=== PATIENT | male | born 1940 | race Caucasian/White ===

== ENCOUNTER → 2016-06-03 | Day surgery (SDC) | payer MEDICARE, BC ==
[~2016-06-03] MED LIST: ASPI81TA2 PO; IV RINGERS,LACTATED 1000ML 1,000 ML IV SCH; OMEP2.5S PO; OMEP20CA9 PO; PROP1VIA IV; PROP20TA PO; PROPOFOL 20 ML IV ONE; RANI150T2 PO
[2016-06-03 08:48] VITALS: BP 116/78
--- NOTE | 2016-06-03 11:35 | HP ---
ADMIT DATE: REFERRING PHYSICIAN: Dr. Afshin Segura. HISTORY OF PRESENT ILLNESS: A 76-year-old male whose past medical history is significant for organic heart disease, status post MO, peptic ulcer disease, gastroesophageal reflux disease, arthritis, status post vasectomy, rotator cuff repair, left wrist surgery, back surgery and was seen with the above symptoms, epigastric and left upper quadrant pain, worse with neoplastic for hours, not worse with exertion, has been on Zantac as well as anti-inflammatory medication, but no change in bowel habits and prior colonoscopy work out was unrevealing. Recent imaging is to be reviewed, but the patient did not show any abnormalities. Continued symptoms, he is here today. PAST MEDICAL HISTORY: Peptic ulcer disease, osteoarthrosis, skin cancers, organic heart disease, status post MO. ALLERGIES: None. MEDICATIONS: Include aspirin, omeprazole, propranolol, and ranitidine. SOCIAL HISTORY: He is retired. He is a former smoker. He does not drink alcohol. FAMILY HISTORY: Noncontributory. PAST SURGICAL HISTORY: As stated. REVIEW OF SYSTEMS: Per records. PHYSICAL EXAMINATION: GENERAL: Well-nourished, well-developed male. VITAL SIGNS: Temperature is 98.4, pulse is 69, respirations 20. LUNGS: Grossly clear. CARDIOVASCULAR: S1, S2 without S3, S4 or appreciable murmur. ABDOMEN: Normoactive bowel sounds with epigastric left upper quadrant tenderness to deep palpation. IMPRESSION: Abdominal pain with reflux, history of peptic ulcer disease and NSAID use, etiology is to be determined. Differential includes gallbladder disease, peptic ulcer disease, malignancy, organic heart disease, Yeung's among others, therefore, I recommended upper endoscopy to further assess this unrevealing, then further consideration of celiac testing and hepatobiliary imaging would be pursued. ROD MACEDO MD DR: DESIREE/misael JOB#: [id number] / [id number] AFSHIN Maldonado MD
--- NOTE | 2016-06-06 13:25 | PATHOLOGY ---
PATHOLOGY REPORT * * * * * * * * FINAL DIAGNOSIS: Esophageal biopsies, distal esophagus: - Segments of hyperplastic squamous esophageal mucosa showing focal intraepithelial neutrophils, chronic inflammatory cells and few eosinophils, consistent with reflux esophagitis. COMMENT: Sections of the distal esophageal biopsy reveal segments of hyperplastic squamous esophageal mucosa showing focal intraepithelial neutrophils, chronic inflammatory cells and few eosinophils. There is also a minute segment of superficial gastric foveolar epithelium. The findings are consistent with reflux esophagitis. There is no evidence of Yeung's change, dysplasia or malignancy. (JPM:csd; d/t: 06/06/2016) REPORT ELECTRONICALLY SIGNED BY: Fermin Delgado M.D. DATE/TIME: 06/06/2016 13:24 * * * * * * * * GROSS PATHOLOGY: Received in formalin labeled "Tim Reyes, distal esophageal biopsy, R/O Yeung's," are four segments of vickers soft tissue measuring 1.0 x 0.9 x 0.1 cm in aggregate dimensions and ranging from 0.5 to 0.7 cm in maximum dimension. The specimen is submitted entirely in cassette A1. (CAA; 06/03/2016) INITIAL CPT CODE(S): A; 55398 Professional services performed by [facility] [address] Technical services performed by [facility] at [address] [place] [address], [facility] [address] [address]. SPECIMEN(S) RECEIVED: A.Distal esophageal biopsy CLINICAL HISTORY: Abdominal pain, R/O Yeung's PATIENT: TIM REYES /AGE: 11 1940 (Age: 76) PATIENT #: [id number] ALT CASE #: SPECIMEN COLLECTION DATE: 06/03/2016 SPECIMEN RECEIVED DATE: 06/03/2016 [facility] - [address] [place] [address] - PHONE: [phone] * * * END OF REPORT * * *
== END | disposition home or self-care (01) ==
LOC: ENDOS 06:19
PROVIDERS: ATTEND Internal Medicine Gastroenterology
DX: K21.0 Gastro-esophageal reflux disease with esophagitis (principal); K29.50 Unspecified chronic gastritis without bleeding; M19.90 Unspecified osteoarthritis, unspecified site; Z87.39 Personal history of other diseases of the musculoskeletal system and connective tissue
CPT/HCPCS: 43239; J2704

== ENCOUNTER → 2016-06-13 | Outpatient (CLI) | payer MEDICARE, BC ==
[2016-06-03 08:48] VITALS: BP 116/78
[~2016-06-13] VITALS: Ht 185.4 cm; Wt 83.9 kg
[~2016-06-13] MED LIST changes: -IV RINGERS,LACTATED 1000ML 1,000 ML IV SCH; -PROPOFOL 20 ML IV ONE; +SINCALIDE 1.68 MCG in IV NORMAL SALINE 50ML 30 ML IV ONE
--- NOTE | 2016-06-13 09:08 | RAD ---
EXAM: Abdomen sonogram limited. HISTORY: Right upper quadrant pain. TECHNIQUE: Sonographic imaging of the abdomen was performed. COMPARISON: None. FINDINGS: There is hepatic steatosis and hepatomegaly. No focal hepatic lesion is seen. The gallbladder is unremarkable. The right kidney is unremarkable. The inferior vena cava is patent. The pancreas is obscured. The common bile duct is normal in caliber, measuring 3 mm. IMPRESSION: 1. Hepatomegaly and hepatic steatosis. 2. Obscured pancreas.
--- NOTE | 2016-06-13 11:24 | RAD ---
EXAM: Nuclear hepatobiliary scan. HISTORY: Reflux. TECHNIQUE: Following intravenous administration of 5.0 mCi Tc 99m Choletec, anterior images of the abdomen were obtained at five minute intervals through one hour. Subsequently, 1.7 mcg CCK was administered and additional images to assess gallbladder ejection fraction were obtained. FINDINGS: There is prompt radiotracer uptake by the liver. No focal defect is seen. There is normal excretion into the biliary tree. The gallbladder is visualized within sixty minutes and there is emptying of tracer into the duodenum. The gallbladder ejection fraction is decreased to 20%. IMPRESSION: Decreased gallbladder ejection fraction of 20%.
== END | disposition home or self-care (01) ==
LOC: US 07:48
PROVIDERS: ATTEND Internal Medicine Gastroenterology
DX: K21.9 Gastro-esophageal reflux disease without esophagitis (principal); R10.11 Right upper quadrant pain; K76.0 Fatty (change of) liver, not elsewhere classified; R16.0 Hepatomegaly, not elsewhere classified
CPT/HCPCS: 76705; 78226; 96374; 96375; A9537; J2805

== ENCOUNTER 2016-09-21 06:38 | Emergency (ER) | payer MEDICARE, BC ==
[~2016-09-21] VITALS: Ht 185.4 cm; Wt 81.6 kg
[~2016-09-21 06:38] MED LIST changes: +ASPI-630 PO; -ASPI81TA2 PO; -SINCALIDE 1.68 MCG in IV NORMAL SALINE 50ML 30 ML IV ONE
--- NOTE | 2016-09-21 07:40 | PHYS DOC ---
Past Medical History Past Medical History: No Pertinent History Past Surgical History: No Surgical History Alcohol Use: None Drug Use: None Adult General Chief Complaint Chief Complaint: ABDOMINAL PAIN HPI HPI 76-year-old male presenting to the emergency department today with epigastric abdominal pain. He reports it radiates to both sides but not to his back. It is a sharp intermittent pain that comes and goes. It is not associated with nausea or vomiting. He denies dark stools. Currently the pain is moderate. He was started on omeprazole by his primary care physician without relief. Review of systems is negative for chest pain shortness of breath fevers chills nausea vomiting diarrhea or constipation. All other review of systems is negative unless otherwise noted in history of present illness. All other review of systems is negative unless otherwise noted in history of present illness. ED course: 76-year-old male presenting to the emergency department with epigastric abdominal pain. Physical exam shows a soft nondistended nontender abdomen. Negative McBurney's point. Negative Pérez sign. IV established. Saline and hydromorphone and ondansetron given. CT abdomen pelvis obtained along with blood work. EKG reviewed by myself shows sinus rhythm with a regular rate. [place] is mildly leftward. Intervals show normal intervals. ST segments are congruent. On reexamination the patient was feeling much better. Abdomen continues to be soft and nontender on reexamination of the abdomen. Blood work reviewed. CBC unremarkable. Chemistry panel shows mildly elevated total bilirubin with a normal direct bilirubin. Otherwise troponin within normal limits. Patient's pain is been present for greater than 24 hours thus 1 troponin sufficient at this time. Otherwise lactate within normal limits. CT of the abdomen pelvis shows no acute pathology. The patient was then discharged home in stable condition to follow up with their primary care physician over the next 2-3 days. They were to return if their symptoms worsened or if they were concerned for any reason. [id number] discharge instructions and return precautions were given. Patient's questions were answered to their satisfaction. Patient is comfortable plan. Review of Systems Review of Systems SEE ABOVE. Current Medications Current Medications Current Medications Medications (Trade) Dose Ordered Sig/Carolyn Start Time Stop Time Status Last Admin Dose Admin Hydromorphone HCl (Dilaudid) 0.5 mg PRN Q1HR PRN 09/21/16 07:45 09/21/16 08:11 0.5 MG Ondansetron HCl (Zofran) 4 mg 1X ONCE 09/21/16 07:45 09/21/16 07:46 DC 09/21/16 08:08 4 MG Sodium Chloride 500 ml @ 500 mls/hr 1X ONCE 09/21/16 07:45 09/21/16 08:44 DC 09/21/16 08:07 500 MLS/HR Allergies Allergies Allergies Coded Allergies Type Severity Reaction Last Updated Verified No Known Drug Allergies 06/03/16 No Physical Exam Physical Exam SEE ABOVE Constitutional: Well developed, well nourished, no acute distress, non-toxic appearance. [] HENT: Normocephalic, atraumatic, bilateral external ears normal, oropharynx moist, no oral exudates, nose normal. [] Eyes: PERRLA, EOMI, conjunctiva normal, no discharge. [] Neck: Normal range of motion, no tenderness, supple, no stridor. [] Cardiovascular:Heart rate regular rhythm, no murmur [] Lungs & Thorax: Bilateral breath sounds clear to auscultation [] Abdomen: Bowel sounds normal, soft, no tenderness, no masses, no pulsatile masses. [] Skin: Warm, dry, no erythema, no rash. [] Back: No tenderness, no CVA tenderness. [] Extremities: No tenderness, no cyanosis, no clubbing, ROM intact, no edema. [] Neurologic: Alert and oriented X 3, normal motor function, normal sensory function, no focal deficits noted. [] Psychologic: Affect normal, judgement normal, mood normal. [] Current Patient Data Vital Signs Vital Signs Date Time Temp Pulse Resp B/P (MAP) Pulse Ox O2 Delivery O2 Flow Rate FiO2 09/21/16 08:11 20 98 Room Air 09/21/16 07:00 97.9 69 122/74 (90) 97.9 Lab Values Laboratory Tests Test 09/21/16 07:35 09/21/16 09:15 White Blood Count 10.5 x10^3/uL (4.0-11.0) Red Blood Count 5.15 x10^6/uL (4.30-5.70) Hemoglobin 16.2 g/dL (13.0-17.5) Hematocrit 48.2 % (39.0-53.0) Mean Corpuscular Volume 94 fL (79-100) Mean Corpuscular Hemoglobin 32 pg (25-35) Mean Corpuscular Hemoglobin Concent 34 g/dL (31-37) Red Cell Distribution Width 13.7 % (11.5-14.5) Platelet Count 211 x10^3/uL (140-400) Neutrophils (%) (Auto) 88 % (31-73) H Lymphocytes (%) (Auto) 4 % (24-48) L Monocytes (%) (Auto) 6 % (0-9) Eosinophils (%) (Auto) 2 % (0-3) Basophils (%) (Auto) 1 % (0-3) Neutrophils # (Auto) 9.2 x10^3uL (1.8-7.7) H Lymphocytes # (Auto) 0.4 x10^3/uL (1.0-4.8) L Monocytes # (Auto) 0.6 x10^3/uL (0.0-1.1) Eosinophils # (Auto) 0.2 x10^3/uL (0.0-0.7) Basophils # (Auto) 0.1 x10^3/uL (0.0-0.2) Segmented Neutrophils % 77 % (35-66) H Band Neutrophils % 4 % (0-9) Lymphocytes % 9 % (24-48) L Monocytes % 5 % (0-10) Eosinophils % 4 % (0-5) Basophils % 1 % (0-3) Platelet Estimate Adequate (ADEQUATE) Sodium Level 141 mmol/L (136-145) Potassium Level 4.1 mmol/L (3.5-5.1) Chloride Level 104 mmol/L (98-107) Carbon Dioxide Level 32 mmol/L (21-32) Anion Gap 5 (6-14) L Blood Urea Nitrogen 9 mg/dL (8-26) Creatinine 1.0 mg/dL (0.7-1.3) Estimated GFR (Cockcroft-Gault) 72.6 Glucose Level 101 mg/dL (70-99) H Lactic Acid Level 1.5 mmol/L (0.4-2.0) Calcium Level 8.0 mg/dL (8.5-10.1) L Total Bilirubin 1.3 mg/dL (0.2-1.0) H Direct Bilirubin 0.2 mg/dL (0.0-0.2) Aspartate Amino Transferase (AST) 14 U/L (15-37) L Alanine Aminotransferase (ALT) 15 U/L (16-63) L Alkaline Phosphatase 90 U/L (46-116) Troponin I Quantitative 0.030 ng/mL (0.000-0.055) [id number]-[id number]-Type Natriuretic Peptide 156 pg/mL (0-449) Total Protein 7.0 g/dL (6.4-8.2) Albumin 3.7 g/dL (3.4-5.0) Lipase 160 U/L (73-393) Urine Collection Type Void Urine Color Marina Urine Clarity Clear Urine pH 5.5 Urine Specific Panther 1.020 Urine Protein Negative mg/dL (NEG-TRACE) Urine Glucose (UA) Negative mg/dL (NEG) Urine Ketones (Stick) Negative mg/dL (NEG) Urine Blood Negative (NEG) Urine Nitrite Negative (NEG) Urine Bilirubin Negative (NEG) Urine Urobilinogen Dipstick 0.2 mg/dL (0.2 mg/dL) Urine Leukocyte Esterase Trace (NEG) Urine RBC Occ /HPF (0-2) Urine WBC Occ /HPF (0-4) Urine Squamous Epithelial Cells Occ /LPF Urine Bacteria 0 /HPF (0-FEW) Urine Mucus Marked /LPF Laboratory Tests 09/21/16 07:35 Laboratory Tests 09/21/16 07:35 EKG EKG [] Radiology/Procedures Radiology/Procedures [] Course & Med Decision Making Course & Med Decision Making Pertinent Labs and Imaging studies reviewed. (See chart for details) [] Dragon Disclaimer Dragon Disclaimer This electronic medical record was generated, in whole or in part, using a voice recognition dictation system. Departure Departure Impression: Primary Impression: Abdominal pain Disposition: HOME, SELF-CARE Condition: STABLE Referrals: AFSHIN VELASQUEZ MD (PCP) Patient Instructions: Abdominal Pain Additional Instructions: Thank you for allowing us to participate in your care today. Followup with your primary care physician in 3 days if your symptoms do not improve. Call your Primary Doctor tomorrow and inform them of your visit today. If you do not have a primary care provider you can ask for a list of our primary care providers. Return to the emergency department you have any new or concerning findings. This should be evaluated by the primary care physician and any necessary consulting services for continued management within a few days after discharge. Return to emergency room if you have any new or concerning symptoms including but not limited to fever, chills, nausea, vomiting, intractable pain, any new rashes, chest pain, shortness of air, uncontrolled bleeding, difficulty breathing, and/or vision loss. You may have been prescribed medication that can change in your level of thinking and ability to operate machinery. These medications include hydrocodone and Ativan. Also, Benadryl has been known to do this as well. Be sure to check with your pharmacist and ask if the medications you've prescribed can affect your level of consciousness. I recommend not operating heavy machinery or driving while on medication such as these. Scripts Ondansetron (ZOFRAN ODT) 4 Mg Tab.rapdis 1 TAB SL PRN Q8HRS Y for NAUSEA, #6 TAB Prov: WESLY ROBERTS MD 09/21/16 Hydrocodone Bit/Acetaminophen (HYDROCODONE-APAP 5-325 ) 1 Each Tablet 1 TAB PO PRN Q6HRS Y for PAIN, #15 TAB 0 Refills Be careful as this medication may cause you to be drowsy or tired. Do not drive on this medication. Prov: WESLY ROBERTS MD 09/21/16 Problem Qualifiers Primary Impression: Abdominal pain Abdominal location: epigastric Qualified Codes: R10.13 - Epigastric pain WESLY ROBERTS MD Sep 21, 2016 07:40
[2016-09-21] MEDS ORDERED: HYDROmorphone 2 MG/ML VIAL IV PRN (07:45)
[2016-09-21] MEDS ORDERED: IV NORMAL SALINE 500ML BAG 500 ML IV ONE (07:45)
[2016-09-21] MEDS ORDERED: ONDANSETRON PF 4 MG/2 ML VIAL. IV ONE (07:45)
[2016-09-21 07:51] LABS: BASO # 0.1 x10^3/uL (0.0-0.2); BASO % 1 % (0-3); EOS % 2 % (0-3); HEMATOCRIT 48.2 % (39.0-53.0); HEMOGLOBIN 16.2 g/dL (13.0-17.5); LYMPH # 0.4 x10^3/uL (1.0-4.8); LYMPH % 4 % (24-48); MEAN CORPUSCULAR HEMOGLOBIN 32 pg (25-35); MEAN CORPUSCULAR HGB CONC 34 g/dL (31-37); MEAN CORPUSCULAR VOLUME 94 fL (79-100); MONO % 6 % (0-9); NEUT % 88 % (31-73); PLATELET COUNT 211 x10^3/uL (140-400); RED BLOOD COUNT 5.15 x10^6/uL (4.30-5.70); RED CELL DISTRIBUTION WIDTH 13.7 % (11.5-14.5); WHITE BLOOD COUNT 10.5 x10^3/uL (4.0-11.0)
[2016-09-21 07:56] LABS: GFR 72.6; POTASSIUM 4.1 mmol/L (3.5-5.1)
[2016-09-21 08:00] LABS: ALBUMIN 3.7 g/dL (3.4-5.0); DIRECT BILIRUBIN 0.2 mg/dL (0.0-0.2); TOTAL BILIRUBIN 1.3 mg/dL (0.2-1.0)
--- NOTE | 2016-09-21 08:03 | RAD ---
Indication mid abdominal pain. Duration one day. Axial images through the abdomen and pelvis were obtained. No IV or gastrointestinal contrast was administered. No prior CT imaging of the abdomen or pelvis is available. The lung bases are clear. The liver and spleen appear unremarkable. The gallbladder appears grossly normal. No pancreatic abnormality is seen. No adrenal anomalies are apparent. There is a 3 mm left renal calculus. There is no hydronephrosis hydroureter or calcification seen along the course of either ureter. An acute finding is not seen. There does not appear to be in an inordinate amount of stool in the large bowel. No acute finding is seen in the pelvis. The prostate is slightly enlarged. Kyphoplasty changes are noted at L4 and T12. IMPRESSION: No acute finding seen in the abdomen or pelvis PQRS Compliance Statement: One or more of the following individualized dose reduction techniques were utilized for this examination: 1. Automated exposure control 2. Adjustment of the mA and/or kV according to patient size 3. Use of iterative reconstruction technique
--- NOTE | 2016-09-21 08:17 | ACF ---
Admission Forms Criteria I am unable to edit this form. This patient was placed as observation status. This is the only avenue in our electronic medical record for me to document this. All of the above information is not my professional medical opinion. Admission Criteria Met?: Pending SCOTT MARTINEZ Sep 21, 2016 08:17 WESLY ROBERTS MD Sep 27, 2016 03:51
--- NOTE | 2016-09-21 08:46 | EKG ---
[facility] [address] [place] [address] Test Date: 2016-09-21 Test Time: 07:24:43 Pat Name: LEONIE REYES Department: Room: Gender: M Product Responsibility Liaison: : 1940 Requested By: WESLY ROBERTS Order Number: [id number] Reading MD: Measurements Intervals [place] Rate: 59 P: -129 NV: 190 QRS: -43 QRSD: 92 T: 23 QT: 364 QTc: 364 Interpretive Statements SINUS RHYTHM ABNORMAL LEFT AXIS DEVIATION R-S TRANSITION ZONE IN V LEADS DISPLACED TO THE RIGHT QRS(T) CONTOUR ABNORMALITY CANNOT RULE OUT ANTEROSEPTAL MYOCARDIAL DAMAGE CONSISTENT WITH INFERIOR INFARCT PROBABLY OLD RI6.01 Unconfirmed report No previous ECG available for comparison
[2016-09-21 09:31] LABS: % BASOS 1 % (0-3); % EOS 4 % (0-5); PLT ESTIMATE ADEQUATE (ADEQUATE)
[2016-09-21 09:57] LABS: BILIRUBIN,URINE NEGATIVE (NEG); GLUCOSE,URINE NEGATIVE (NEG); NITRITE,URINE NEGATIVE (NEG); PH,URINE 5.5; PROTEIN,URINE NEGATIVE (NEG-TRACE); UROBILINOGEN,URINE 0.2 mg/dL (0.2 mg/dL)
[2016-09-21 10:16] LABS: BACTERIA,URINE 0 /HPF (0-FEW); RBC,URINE OCC /HPF (0-2); SQUAMOUS EPITHELIAL CELL,UR OCC /LPF; WBC,URINE OCC /HPF (0-4)
[2016-09-21] MEDS ORDERED: ONDA4TAB10 SL (11:03)
[2016-09-21] MEDS ORDERED: HYDR-2758 PO (11:03)
[2016-09-21 11:11] VITALS: BP 121/71
== END 2016-09-21 12:00 | disposition home or self-care (01) ==
LOC: ER 06:38
DX: R10.13 Epigastric pain (principal)
CPT/HCPCS: 36415; 74176; 80048; 80076; 81001; 83605; 83690; 83880; 84484; 85007; 85027; 87086; 93005; 96361; 96374; 96375; 99285; J1170; J2405; J7040

== ENCOUNTER → 2016-10-10 | Day surgery (SDC) | payer MEDICARE, BC ==
[~2016-10-10] VITALS: Ht 182.9 cm; Wt 84.0 kg
[~2016-10-10] MED LIST changes: +ACET500T33 PO; +BUPIVACAINE-EPI 0.5%-1:200000 50 ML VIAL. ONE; +DESFLURANE 61 TO 120 MINUTES IH ONE; +DEXAMETHASONE SOD PHOS 20 MG/5 ML VIAL. ONE; +GLYCOPYRROLATE 1 MG/5 ML VIAL. ONE; +HYDR-2758 PO; +HYDR-2762 PO; +HYDROcodone/APAP 7.5/325MG 1 TAB TABLET PO PRN; +HYDROmorphone 2 MG/ML VIAL IV PRN; +IOHEXOL 300 MG/ML 50 ML VIAL. ONE; +IV RINGERS,LACTATED 1000ML 1,000 ML IV SCH; +LIDOCAINE 1% 1 ML SYRINGE. ID PRN; +MORPHINE SULFATE 2 MG/ML DISP.SYRIN. IV PRN; +NEOSTIGMINE METHYLSULFATE 5 MG/5 ML SYRINGE. ONE; +ONDA4TAB10 SL; +ONDANSETRON PF 4 MG/2 ML VIAL. IV PRN; +ONDANSETRON PF 4 MG/2 ML VIAL. ONE; +PROCHLORPERAZINE 10 MG/2 ML VIAL. IV PRN; +PROP60CA8 PO; +PROPOFOL 20 ML IV ONE; +ROCURONIUM 50 MG/5 ML VIAL. ONE; +SENN1TAB70 PO; +SUCCINYLCHOLINE 200 MG/10 ML VIAL. ONE; +SURGICEL HEMOSTAT 4X8 EACH. ONE; +fentaNYL PF VIAL 100 MCG/2 ML VIAL IV PRN; +fentaNYL PF VIAL 100 MCG/2 ML VIAL ONE; +fentaNYL PF VIAL 250 MCG/5 ML VIAL ONE
--- NOTE | 2016-10-10 09:29 | PDOC1 ---
History and Physical Date of Admission Date of Admission DATE: 10/10/16 TIME: 07:45 Identification/Chief Complaint Chief Complaint RUQ pain Problems: Source Source: Chart review, Patient History of Present Illness History of Present Illness Mr Iverson is a 76 yo gentleman with epigastric and RUQ pain post prandially. His GB EF is low and he is brought for l/s abran in hope of improving his Sx Past Medical History Cardiovascular: No pertinent hx Pulmonary: No pertinent hx Hepatobiliary: Other (biliary dyskinesia) Renal/: No pertinent hx Past Surgical History Past Surgical History: Hernia Repair, Other (back,wrist, rotator cuff) Family History Family History: No Significant Social History Smoke: No ALCOHOL: none Drugs: None Current Medications Current Medications Current Medications Ondansetron HCl (Zofran) 4 mg PRN Q6HRS PRN IV NAUSEA/VOMITING; Start 10/10/16 at 07:00; Stop 10/11/16 at 06:59 Fentanyl Citrate (Fentanyl 2ml Vial) 25 mcg PRN Q5MIN PRN IV MILD PAIN; Start 10/10/16 at 07:00; Stop 10/11/16 at 06:59 Fentanyl Citrate (Fentanyl 2ml Vial) 50 mcg PRN Q5MIN PRN IV MODERATE PAIN; Start 10/10/16 at 07:00; Stop 10/11/16 at 06:59 Morphine Sulfate 1 mg PRN Q10MIN PRN IV SEVERE PAIN; Start 10/10/16 at 07:00; Stop 10/11/16 at 06:59 Ringer's Solution 1,000 ml @ 0 mls/hr Q0M IV ; Start 10/10/16 at 07:00; Stop at 18:59 Lidocaine HCl 2 ml PRN 1X PRN ID PRIOR TO IV START; Start 10/10/16 at 07:00; Stop 10/11/16 at 06:59 Hydromorphone HCl (Dilaudid) 0.5 mg PRN Q10MIN PRN IV SEV PAIN, Second choice; Start 10/10/16 at 07:00; Stop 10/11/16 at 06:59 Prochlorperazine Edisylate (Compazine) 5 mg PACU PRN PRN IV NAUSEA, MRX1; Start 10/10/16 at 07:00; Stop 10/11/16 at 06:59 Cefazolin Sodium/ Dextrose 50 ml @ 100 mls/hr 1X ONCE IV Last administered on 10/10/16 08:07; Start 10/10/16 at 06:00; Stop 10/10/16 at 06:29; Status DC Cellulose 1 each STK-MED ONCE .ROUTE ; Start 10/10/16 at 07:09; Stop 10/10/16 at 07:10; Status DC Iohexol (Omnipaque 300 Mg/ml) 50 ml STK-MED ONCE .ROUTE Last administered on 08:25; Start 10/10/16 at 07:09; Stop 10/10/16 at 07:10; Status DC Bupivacaine HCl/ Epinephrine Bitart (Marcaine-Epi 0.5%-1:[id number]) 50 ml STK-MED ONCE .ROUTE Last administered on 10/10/16 08:25; Start 10/10/16 at 07:09; Stop 10/10/16 at 07:10; Status DC Ringer's Solution 1,000 ml @ 75 mls/hr [id number] IV Last administered on 07:26; Start 10/10/16 at 07:30 Fentanyl Citrate (Fentanyl 5ml Vial) 250 mcg STK-MED ONCE .ROUTE ; Start at 07:42; Stop 10/10/16 at 07:43; Status DC Rocuronium [place] (Zemuron) 50 mg STK-MED ONCE .ROUTE ; Start 10/10/16 at 07:42 ; Stop 10/10/16 at 07:43; Status DC Succinylcholine Chloride (Anectine) 200 mg STK-MED ONCE .ROUTE ; Start 10/10/16 at 07:43; Stop 10/10/16 at 07:44; Status DC Ephedrine Sulfate (Akovaz) 50 mg STK-MED ONCE .ROUTE ; Start 10/10/16 at 08:05; Stop 10/10/16 at 08:06; Status DC Desflurane (Suprane) 60 ml STK-MED ONCE IH ; Start 10/10/16 at 08:32; Stop 10/10 at 08:33; Status DC Propofol 20 ml @ As Directed STK-MED ONCE IV ; Start 10/10/16 at 08:32; Stop at 08:33; Status DC Dexamethasone Sodium Phosphate (Decadron) 20 mg STK-MED ONCE .ROUTE ; Start at 08:32; Stop 10/10/16 at 08:33; Status DC Ondansetron HCl (Zofran) 4 mg STK-MED ONCE .ROUTE ; Start 10/10/16 at 08:32; Stop 10/10/16 at 08:33; Status DC Glycopyrrolate (Robinul) 1 mg STK-MED ONCE .ROUTE ; Start 10/10/16 at 08:33; Stop 10/10/16 at 08:34; Status DC Neostigmine Methylsulfate 5 mg STK-MED ONCE .ROUTE ; Start 10/10/16 at 08:33; Stop 10/10/16 at 08:34; Status DC Active Scripts Active Reported Tylenol Extra Strength (Acetaminophen) 500 Mg Tablet 1,000 Mg PO QHS Hydrocodone-Apap 7.5-325 (Hydrocodone Bit/Acetaminophen) 1 Each Tablet 1 Tab PO PRN PRN Inderal La (Propranolol Hcl) 60 Mg Cap.sa.24h 1 Cap PO DAILY Ranitidine Hcl 150 Mg Tablet 150 Mg PO BID Omeprazole 20 Mg Capsule.dr 20 Mg PO DAILY Allergies Allergies: Coded Allergies: No Known Drug Allergies (Unverified , 06/03/16) ROS Review of System negative with the exception of present complaints Physical Exam General: Alert, Oriented X3, Cooperative, No acute distress HEENT: Atraumatic Lungs: Clear to auscultation Heart: RRR Abdomen: Soft, Other (minimally TTP in the RUQ) Vitals Vitals Vital Signs Date Time Temp Pulse Resp B/P (MAP) Pulse Ox O2 Delivery O2 Flow Rate FiO2 10/10/16 07:21 97.6 62 97 97.6 10/10/16 07:18 18 124/76 Room Air VTE Prophylaxis Ordered VTE Prophylaxis Devices: Yes VTE Pharmacological Prophylaxi: No Assessment/Plan Assessment/Plan biliary dyskinesia Discussed risks of laprascopic cholecystectomy including but not limited to bleeding, infection, injury to bowel, liver or bile ducts with resultant bile leak or bile blockage. Also the possible need for an "open" procedure or diarrhea post op. Also explained that he could continue to have symptoms despite having his GB out. He will proceed. PERLA CHAHAL MD Oct 10, 2016 09:29
--- NOTE | 2016-10-10 09:31 | PDOC ---
BRIEF OPERATIVE NOTE Date: Oct 10, 2016 Pre-Op Diagnosis biliary dyskinesia Post-Op Diagnosis same Procedure Performed l/s abran with grams Surgeon Joo Anesthesia Type: General Blood Loss 75cc IV Fluid 900cc Specimens Obtained GB Findings supple GB with omental adhesions, normal grams Complications none OPerative Note Wk # [id number] PERLA CHAHAL MD Oct 10, 2016 09:31
--- NOTE | 2016-10-10 09:37 | DISCH ---
DISCHARGE INSTRUCTIONS Condition on Discharge Condition on Discharge: Stable Activity After Discharge Activity Instructions for Disc: Activity as tolerated, Avoid exertion Lifting Instructions after Dis: No heavy lifting Driving Instructions after Dis: Do not drive (4-5 days) Diet after Discharge Diet after Discharge: Regular Wound Incision Care Wound/Incision Care: Ice to area for comfort Other wound/incision instructi: july shower Monday Follow-Up Follow Up With: Joo next week PERLA CHAHAL MD Oct 10, 2016 09:37
--- NOTE | 2016-10-10 10:07 | OP ---
DATE OF SURGERY: 10/10/2016 PREOPERATIVE DIAGNOSIS: Biliary dyskinesia. POSTOPERATIVE DIAGNOSIS: Biliary dyskinesia. PROCEDURE: Laparoscopic cholecystectomy with cholangiogram. SURGEON: Perla Chahal MD ANESTHESIA: General endotracheal. IV FLUIDS: 900 mL. ESTIMATED BLOOD LOSS: 75 mL. INDICATIONS: The patient is a 76-year-old gentleman with epigastric and right upper quadrant pain. He has a low ejection fraction on his PIPIDA scan. He is brought for cholecystectomy. OPERATIVE FINDINGS: The liver was smooth, sharp, and mildly fibrotic. The gallbladder was supple with omental adhesions along the inferior surface. Visual inspection of remainder of the abdomen failed to reveal obvious abnormalities. DESCRIPTION OF PROCEDURE: The patient brought to the operating suite, given a general endotracheal anesthetic and the abdomen prepped and draped in usual sterile fashion. An infraumbilical incision was infiltrated with local anesthetic, sharply incised and a 5 mm Visiport used to gain access into the abdominal cavity. Pneumoperitoneum was established. Camera inserted and inspection carried out with results as noted above. With the table in reverse Trendelenburg rolled to the left, the epigastric, midclavicular, and lateral ports were placed under direct vision. The gallbladder was retracted superolaterally and the omental adhesions were carefully taken down with blunt and cautery dissection, avoiding injury to the adjacent bowel. The cystic duct and cystic artery were exposed. The cystic duct was clipped on the gallbladder side. Cholangiograms were made. These were normal. In light of this, the catheter was removed and the cystic duct was clipped and divided, taking care to avoid injury or compromise the common duct. An anterior and posterior branch of the cystic artery were isolated, clipped and divided and gallbladder freed from the bed with cautery dissection and placed in an EndoCatch bag. Good hemostasis obtained in the fossa with cautery. Table returned to level. Gallbladder delivered through the epigastric incision. Epigastric incision closed with interrupted 0 Vicryl suture. Intra-abdominal pressure decreased to 6 cm of water. No bleeding from the epigastric closure or from the midclavicular or lateral port sites after their removal. Abdomen decompressed, camera slowly removed, no bleeding seen. Skin incisions closed with subcuticular 4-0 Monocryl. Steri-Strips and sterile dressings applied. The patient was awakened from his anesthetic and taken to the recovery room in satisfactory condition. PERLA CHAHAL MD DR: Giovanny JOB#: [id number] / [id number]
--- NOTE | 2016-10-10 10:44 | RAD ---
Intraoperative cholangiogram, 10/10/2016: History: Cholecystectomy 3 spot films from surgery are presented for review. Contrast has been injected into the cystic duct remnant. 0.23 minutes of fluoroscopy time was utilized. There is good flow of contrast into the duodenum at the ampulla. No filling defect is seen in the common duct to suggest a retained stone. There is extravasation of contrast in the gallbladder fossa region. This is likely on a technical basis related to the catheter insertion site in the cystic duct. A biliary leak cannot be entirely excluded. The intrahepatic ducts are incompletely opacified.
[2016-10-10 13:45] VITALS: BP 134/72
--- NOTE | 2016-10-12 11:36 | PATHOLOGY ---
PATHOLOGY REPORT * * * * * * * * FINAL DIAGNOSIS: Gallbladder, laparoscopic cholecystectomy: - Chronic cholecystitis. COMMENT: There are no calculi identified within the gallbladder lumen or specimen container. Sections of the gallbladder show chronic inflammation. There is no evidence of malignancy. (JPM:mgr; 10/11/2016) REPORT ELECTRONICALLY SIGNED BY: Fermin Delgado M.D. DATE/TIME: 10/11/2016 13:52 * * * * * * * * GROSS PATHOLOGY: Received in formalin labeled "Tim Reyes, gallbladder and contents," is a 6.2 x 2.4 x 1.0 cm, partially opened gallbladder with yellow brewer serosal surfaces. Opening the gallbladder reveals harris, yellow red, velvety mucosa and an average wall thickness of 0.3 cm. Calculi are not present and no masses are noted grossly. Inhalation Therapy Aide sections from the body and fundus are submitted along with the proximal margin in cassette A1. (JPM; 10/10/16) INITIAL CPT CODE(S): A; 91297 Professional services performed by [facility] [place] [address] Technical services performed by [facility] at [address] [place] [address]. SPECIMEN(S) RECEIVED: A.Gallbladder and contents CLINICAL HISTORY: Biliary dyskinesia PATIENT: TIM REYES /AGE: 11 1940 (Age: 76) PATIENT #: [id number] ALT CASE #: SPECIMEN COLLECTION DATE: 10/10/2016 SPECIMEN RECEIVED DATE: 10/10/2016 [facility] - [address] [place] [address] - PHONE: [phone] * * * END OF REPORT * * *
== END | disposition home or self-care (01) ==
LOC: SURG 06:30
PROVIDERS: ATTEND Surgery
DX: K82.8 Other specified diseases of gallbladder (principal); K21.9 Gastro-esophageal reflux disease without esophagitis; M19.90 Unspecified osteoarthritis, unspecified site; Z87.39 Personal history of other diseases of the musculoskeletal system and connective tissue
CPT/HCPCS: 47563; 74300; J0330; J0690; J1100; J2405; J2704; J2710; J3010; J3490; Q9967; 88304; J7030

== ENCOUNTER → 2017-05-05 | Outpatient (CLI) | payer MEDICARE, BC | END | disposition home or self-care (01) | LOC: KCIC CT 12:35 | DX: M48.54XA Collapsed vertebra, not elsewhere classified, thoracic region, initial encounter for fracture (principal); R09.89 Other specified symptoms and signs involving the circulatory and respiratory systems; N20.0 Calculus of kidney | CPT/HCPCS: 70486; 71250 ==

== ENCOUNTER → 2017-09-08 | Outpatient (CLI) | payer MEDICARE, BC | END | disposition home or self-care (01) | LOC: KCIC CT 13:49 | DX: H91.8X3 Other specified hearing loss, bilateral (principal); J34.89 Other specified disorders of nose and nasal sinuses | CPT/HCPCS: 70480 ==

== ENCOUNTER 2019-09-15 05:44 | Emergency (ER) | payer MEDICARE, BC ==
[~2019-09-15] VITALS: Ht 185.4 cm; Wt 68.0 kg
[~2019-09-15 05:44] MED LIST changes: -BUPIVACAINE-EPI 0.5%-1:200000 50 ML VIAL. ONE; -DESFLURANE 61 TO 120 MINUTES IH ONE; -DEXAMETHASONE SOD PHOS 20 MG/5 ML VIAL. ONE; -GLYCOPYRROLATE 1 MG/5 ML VIAL. ONE; -HYDR-2758 PO; +HYDR-2761 PO; -HYDR-2762 PO; +HYDR-2765 PO; -HYDROcodone/APAP 7.5/325MG 1 TAB TABLET PO PRN; -HYDROmorphone 2 MG/ML VIAL IV PRN; -IOHEXOL 300 MG/ML 50 ML VIAL. ONE; -IV RINGERS,LACTATED 1000ML 1,000 ML IV SCH; -LIDOCAINE 1% 1 ML SYRINGE. ID PRN; -MORPHINE SULFATE 2 MG/ML DISP.SYRIN. IV PRN; -NEOSTIGMINE METHYLSULFATE 5 MG/5 ML SYRINGE. ONE; -OMEP2.5S PO; +OMEP2.5S2 PO; +OMEP20CA16 PO; -OMEP20CA9 PO; -ONDANSETRON PF 4 MG/2 ML VIAL. IV PRN; -ONDANSETRON PF 4 MG/2 ML VIAL. ONE; -PROCHLORPERAZINE 10 MG/2 ML VIAL. IV PRN; +PROP60CA36 PO; -PROP60CA8 PO; -PROPOFOL 20 ML IV ONE; -ROCURONIUM 50 MG/5 ML VIAL. ONE; -SUCCINYLCHOLINE 200 MG/10 ML VIAL. ONE; -SURGICEL HEMOSTAT 4X8 EACH. ONE; -fentaNYL PF VIAL 100 MCG/2 ML VIAL IV PRN; -fentaNYL PF VIAL 100 MCG/2 ML VIAL ONE; -fentaNYL PF VIAL 250 MCG/5 ML VIAL ONE
[2019-09-15 06:12] LABS: BASO % 0 % (0-3); EOS # 0.1 x10^3/uL (0.0-0.7); EOS % 1 % (0-3); HEMATOCRIT 47.3 % (39.0-53.0); HEMOGLOBIN 16.4 g/dL (13.0-17.5); LYMPH # 0.5 x10^3/uL (1.0-4.8); LYMPH % 5 % (24-48); MEAN CORPUSCULAR HEMOGLOBIN 32 pg (25-35); MEAN CORPUSCULAR HGB CONC 35 g/dL (31-37); MEAN CORPUSCULAR VOLUME 94 fL (79-100); MONO # 0.4 x10^3/uL (0.0-1.1); MONO % 4 % (0-9); NEUT # 8.6 x10^3/uL (1.8-7.7); NEUT % 90 % (31-73); PLATELET COUNT 236 x10^3/uL (140-400); RED BLOOD COUNT 5.06 x10^6/uL (4.30-5.70); RED CELL DISTRIBUTION WIDTH 13.9 % (11.5-14.5); WHITE BLOOD COUNT 9.5 x10^3/uL (4.0-11.0)
[2019-09-15 06:14] LABS: BILIRUBIN,URINE NEGATIVE (NEG); CLARITY,URINE CLEAR; COLOR,URINE YELLOW; NITRITE,URINE NEGATIVE (NEG); PROTEIN,URINE NEGATIVE (NEG-TRACE); UROBILINOGEN,URINE 0.2 mg/dL (0.2 mg/dL)
[2019-09-15] MEDS ORDERED: KETOROLAC 15 MG/ML VIAL. IVP ONE (06:15)
[2019-09-15 06:27] LABS: CALCIUM 8.7 mg/dL (8.5-10.1); CREATININE 1.2 mg/dL (0.7-1.3); GFR 58.4; POTASSIUM 3.7 mmol/L (3.5-5.1)
[2019-09-15 06:29] LABS: ALBUMIN/GLOBULIN RATIO 1.3 (1.0-1.7); TOTAL BILIRUBIN 1.2 mg/dL (0.2-1.0); TOTAL PROTEIN 7.2 g/dL (6.4-8.2)
[2019-09-15 06:36] LABS: BACTERIA,URINE 0 /HPF (0-FEW); RBC,URINE 0 /HPF (0-2); SQUAMOUS EPITHELIAL CELL,UR OCC /LPF; WBC,URINE OCC /HPF (0-4)
[2019-09-15 06:37] LABS: HYALINE CASTS, URINE OCCASIONAL /HPF
--- NOTE | 2019-09-15 07:00 | RAD ---
CT abdomen pelvis without contrast. HISTORY: Left lower quadrant pain flank pain CT scan the abdomen pelvis was done without contrast. There is mild bronchiectasis in the lung bases with interstitial fibrosis or interstitial infiltrates. Pattern in the lung bases similar to an old study from 2017. A liver lesion is not identified. The patient's had a cholecystectomy. Spleen and adrenal glands are normal. There is no right hydronephrosis. There is dilatation of the left renal collecting system. There is a 6 x8 mm calculus in the distal left ureter. There is also a large bladder calculus. There is no free air. There is no bowel obstruction. Appendix is normal. There are old compression fractures of L4 and T12. IMPRESSION: 1. Left ureteral calculus with left hydronephrosis. 2. Prominent bladder calculus. 3. No bowel obstruction. PQRS Compliance Statement: One or more of the following individualized dose reduction techniques were utilized for this examination: 1. Automated exposure control 2. Adjustment of the mA and/or kV according to patient size 3. Use of iterative reconstruction technique Electronically signed by: Ronnell Gudino MD (09/15/2019 6:57 AM) [id number]
[2019-09-15 07:16] LABS: % BANDS 1 % (0-9); % EOS 2 % (0-5); % LYMPHS 4 % (24-48); % MONOS 1 % (0-10); % SEGS 92 % (35-66); PLT ESTIMATE ADEQUATE (ADEQUATE)
--- NOTE | 2019-09-15 07:24 | PHYS DOC ---
Past Medical History Past Medical History: No Pertinent History Additional Past Medical Histor: Tremors. Past Surgical History: No Surgical History Additional Past Surgical Histo: Kyphoplasty-Fx back&L)wrist with repair from 20ft fall. Smoking Status: Former Smoker Alcohol Use: None Drug Use: None General Adult EDM: Chief Complaint: ABDOMINAL PAIN HPI: HPI: Patient is a 79 year old 79-year-old male presenting to the ED with a chief complaint of left abdominal pain. Patient states that it woke him up at 3 AM this morning. Patient denies fever, chills, nausea, vomiting, diarrhea, dysuria, chest pain, shortness of breath. Patient denies dysuria or hematuria. Patient states that the pain is about 7 out of 10 with no radiation. Review of Systems: Review of Systems: Constitutional: Denies fever or chills. [] Eyes: Denies change in visual acuity. [] HENT: Denies nasal congestion or sore throat. [] Respiratory: Denies cough or shortness of breath. [] Cardiovascular: Denies chest pain or edema. [] GI: Complains of left abdominal pain. Denies nausea, vomiting, diarrhea, constipation [] : Denies dysuria. [] Neurologic: Denies headache, focal weakness or sensory changes. [] Heart Score: Risk Factors: Risk Factors: DM, Current or recent (<one month) smoker, HTN, HLP, family history of CAD, obesity. Risk Scores: Score 0 - 3: 2.5% MACE over next 6 weeks - Discharge Home Score 4 - 6: 20.3% MACE over next 6 weeks - Admit for Clinical Observation Score 7 - 10: 72.7% MACE over next 6 weeks - Early Invasive Strategies Current Medications: Current Medications Medications (Trade) Dose Ordered Sig/[facility] Start Time Stop Time Status Last Admin Dose Admin Ketorolac Tromethamine (Toradol 15mg Vial) 15 mg 1X ONCE 09/15/19 06:15 09/15/19 06:16 DC 09/15/19 06:31 15 MG Allergies: Allergies: Allergies Coded Allergies Type Severity Reaction Last Updated Verified No Known Drug Allergies 06/03/16 No Physical Exam: PE: Constitutional: Well developed, well nourished, no acute distress, non-toxic appearance. [] HENT: Normocephalic, atraumatic Eyes: EOMI Neck: Normal range of motion, Supple Cardiovascular:Heart rate regular rhythm Lungs & Thorax: Bilateral breath sounds clear to auscultation [] Abdomen: Left lower abdominal tenderness Extremities: No tenderness, ROM intact Neurologic: Alert and oriented X 3 Current Patient Data: Labs: Laboratory Tests Test 09/15/19 05:55 09/15/19 06:04 Urine Collection Type Unknown Urine Color Yellow Urine Clarity Clear Urine pH 5.0 (<5.0-8.0) Urine Specific Ehrhardt 1.020 (1.000-1.030) Urine Protein Negative mg/dL (NEG-TRACE) Urine Glucose (UA) Negative mg/dL (NEG) Urine Ketones (Stick) Negative mg/dL (NEG) Urine Blood Negative (NEG) Urine Nitrite Negative (NEG) Urine Bilirubin Negative (NEG) Urine Urobilinogen Dipstick 0.2 mg/dL (0.2 mg/dL) Urine Leukocyte Esterase Negative (NEG) Urine RBC 0 /HPF (0-2) Urine WBC Occ /HPF (0-4) Urine Squamous Epithelial Cells Occ /LPF Urine Bacteria 0 /HPF (0-FEW) Urine Hyaline Casts Occasional /HPF Urine Mucus Marked /LPF White Blood Count 9.5 x10^3/uL (4.0-11.0) Red Blood Count 5.06 x10^6/uL (4.30-5.70) Hemoglobin 16.4 g/dL (13.0-17.5) Hematocrit 47.3 % (39.0-53.0) Mean Corpuscular Volume 94 fL (79-100) Mean Corpuscular Hemoglobin 32 pg (25-35) Mean Corpuscular Hemoglobin Concent 35 g/dL (31-37) Red Cell Distribution Width 13.9 % (11.5-14.5) Platelet Count 236 x10^3/uL (140-400) Neutrophils (%) (Auto) 90 % (31-73) H Lymphocytes (%) (Auto) 5 % (24-48) L Monocytes (%) (Auto) 4 % (0-9) Eosinophils (%) (Auto) 1 % (0-3) Basophils (%) (Auto) 0 % (0-3) Neutrophils # (Auto) 8.6 x10^3/uL (1.8-7.7) H Lymphocytes # (Auto) 0.5 x10^3/uL (1.0-4.8) L Monocytes # (Auto) 0.4 x10^3/uL (0.0-1.1) Eosinophils # (Auto) 0.1 x10^3/uL (0.0-0.7) Basophils # (Auto) 0.0 x10^3/uL (0.0-0.2) Segmented Neutrophils % 92 % (35-66) H Band Neutrophils % 1 % (0-9) Lymphocytes % 4 % (24-48) L Monocytes % 1 % (0-10) Eosinophils % 2 % (0-5) Platelet Estimate Adequate (ADEQUATE) Sodium Level 139 mmol/L (136-145) Potassium Level 3.7 mmol/L (3.5-5.1) Chloride Level 103 mmol/L (98-107) Carbon Dioxide Level 27 mmol/L (21-32) Anion Gap 9 (6-14) Blood Urea Nitrogen 15 mg/dL (8-26) Creatinine 1.2 mg/dL (0.7-1.3) Estimated GFR (Cockcroft-Gault) 58.4 BUN/Creatinine Ratio 13 (6-20) Glucose Level 117 mg/dL (70-99) H Calcium Level 8.7 mg/dL (8.5-10.1) Total Bilirubin 1.2 mg/dL (0.2-1.0) H Aspartate Amino Transferase (AST) 15 U/L (15-37) Alanine Aminotransferase (ALT) 16 U/L (16-63) Alkaline Phosphatase 87 U/L (46-116) Total Protein 7.2 g/dL (6.4-8.2) Albumin 4.0 g/dL (3.4-5.0) Albumin/Globulin Ratio 1.3 (1.0-1.7) Laboratory Tests 09/15/19 06:04 Laboratory Tests 09/15/19 06:04 Vital Signs: Vital Signs Date Time Temp Pulse Resp B/P (MAP) Pulse Ox O2 Delivery O2 Flow Rate FiO2 09/15/19 06:23 97.9 89 16 142/73 (96) 99 Room Air 97.9 EKG: EKG: [] Radiology/Procedures: Radiology/Procedures: [] Impression: CT Abd/Pelvis CT scan the abdomen pelvis was done without contrast. There is mild bronchiectasis in the lung bases with interstitial fibrosis or interstitial infiltrates. Pattern in the lung bases similar to an old study from 2017. A liver lesion is not identified. The patient's had a cholecystectomy. Spleen and adrenal glands are normal. There is no right hydronephrosis. There is dilatation of the left renal collecting system. There is a 6 x8 mm calculus in the distal left ureter. There is also a large bladder calculus. There is no free air. There is no bowel obstruction. Appendix is normal. There are old compression fractures of L4 and T12. Course & Med Decision Making: Course & Med Decision Making Pertinent Labs and Imaging studies reviewed. (See chart for details) Ordered labs, UA, CT abdomen pelvis without contrast, IV Toradol. Labs are within normal limits. UA does not show UTI. CT abdomen pelvis shows 6 x 8 mm left distal ureteral stone with also large calculus in the bladder. Patient can be discharged home for outpatient follow-up. Pain medication and nausea medicine. Discussed results and plan of care with patient. Patient is instructed to follow up with PCP in one to 2 days. Appropriate discharge instructions given to patient to return to the ED or to seek immediate medical evaluation. Patient is instructed to return to the ED if symptoms worsen or if any concerns. Dragon Disclaimer: Dragon Disclaimer: This electronic medical record was generated, in whole or in part, using a voice recognition dictation system. Departure Departure Impression: Primary Impression: Ureterolithiasis Disposition: 01 HOME, SELF-CARE Condition: STABLE Referrals: AFSHIN VELASQUEZ MD (PCP) Patient Instructions: Kidney Stones Additional Instructions: Discussed results and plan of care with patient. Patient is instructed to follow up with PCP in one to 2 days. Appropriate discharge instructions given to patient to return to the ED or to seek immediate medical evaluation. Patient is instructed to return to the ED if symptoms worsen or if any concerns. Scripts Ondansetron Hcl (ZOFRAN) 4 Mg Tablet 4 MG PO PRN TID PRN for NAUSEA, #15 nausea/vomiting Prov: MADELEINE MILLER DO 09/15/19 Hydrocodone/Apap 5-325 (NORCO 5-325 TABLET) 1 Each Tablet 1 EACH PO PRN Q6HRS PRN for PAIN, #12 as needed for pain Prov: MADELEINE MILLER DO 09/15/19 Justicifation of Admission Dx: Justifications for Admission: Justification of Admission Dx: No AMADO MILLERLI E DO Sep 15, 2019 07:24
[2019-09-15] MEDS ORDERED: ONDA4TAB7 PO (08:18)
[2019-09-15] MEDS ORDERED: HYDR-3164 PO (08:18)
[2019-09-15 08:33] VITALS: BP 121/74
== END 2019-09-15 08:40 | disposition home or self-care (01) ==
LOC: ER 05:44
DX: N13.2 Hydronephrosis with renal and ureteral calculous obstruction (principal); Z87.891 Personal history of nicotine dependence
CPT/HCPCS: 36415; 74176; 80053; 81001; 85007; 85025; 96374; 99285; J1885